=== PATIENT | male | born 1980 | race Caucasian/White ===

== ENCOUNTER 2017-04-30 19:49 | Emergency (ER) | payer OTHER ==
[2017-04-30] MEDS ORDERED: BENADRYL 50 MG/ML IM ONE (20:09)
--- NOTE | 2017-04-30 20:09 | ERPHSYRPT ---
- History of Present Illness Time Seen by Provider: 04/30/17 20:05 Source: patient Exam Limitations: no limitations Patient Subjective Stated Complaint: Rash since yesterday, worsening today. Slow onset. Unknown new exposures. Has had this happen x 1 in the past with similar presentation. 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 Triage Nursing Assessment: Pt alert, oriented, answers all questions appropriately. Skin p/w/d, resps non-labored. Lung sounds CTA bilat. Red raised welts noted to pts neck, torso, arms, legs. No drainge from sites noted. SPO2 96% room air. Physician History: rash , urticaric over body , previous occurrence last year requiring steroid tx not short of breath , swallowing OK , no meds , no known exposures; no known chronic Dx Timing/Duration: today Quality: itchy Severity: moderate Location: generalized Possible Causes: no cause identified Modifying Factors: Improves With: prednisone Associated Symptoms: hives, rash Allergies/Adverse Reactions: Sulfa (Sulfonamide Antibiotics) Allergy (Verified 04/30/17 20:07) Immunizations Up to Date: Yes - Review of Systems Constitutional: No Fever, No Chills Eyes: No Symptoms Ears, Nose, & Throat: No Symptoms Respiratory: No Cough, No Dyspnea Cardiac: No Chest Pain, No Edema, No Syncope Abdominal/Gastrointestinal: No Abdominal Pain, No Nausea, No Vomiting, No Diarrhea Genitourinary Symptoms: No Dysuria Musculoskeletal: No Back Pain, No Neck Pain Skin: Rash Neurological: No Dizziness, No Focal Weakness, No Sensory Changes Psychological: No Symptoms Endocrine: No Symptoms All Other Systems: Reviewed and Negative - Past Medical History Pertinent Past Medical History: Yes Other Medical History: prior similar event - Past Surgical History Past Surgical History: No - Social History Smoking Status: Never smoker Exposure to second hand smoke: No Patient Lives Alone: No - Nursing Vital Signs Nursing Vital Signs: Initial Vital Signs Temperature 98.3 F 04/30/17 19:53 Pulse Rate 104 H 04/30/17 19:53 Respiratory Rate 16 04/30/17 19:53 Blood Pressure 144/76 04/30/17 19:53 O2 Sat by Pulse Oximetry 96 04/30/17 19:53 Pain Scale Pain Intensity 0 - Physical Exam General Appearance: no apparent distress, alert Eye Exam: PERRL/EOMI, eyes nml inspection Ears, Nose, Throat Exam: normal ENT inspection, pharynx normal, moist mucous membranes, No pharyngeal erythema Neck Exam: normal inspection, non-tender, supple, full range of motion Respiratory Exam: normal breath sounds, lungs clear, airway intact, No respiratory distress, No crackles/rales, No rhonchi, No wheezing, No stridor Cardiovascular Exam: regular rate/rhythm, normal heart sounds Gastrointestinal/Abdomen Exam: soft, mass, No tenderness Back Exam: normal inspection, normal range of motion, No CVA tenderness, No vertebral tenderness Extremity Exam: normal inspection, normal range of motion Neurologic Exam: alert, oriented x 3, cooperative, normal mood/affect, sensation nml, No motor deficits Skin Exam: normal color, warm, dry, rash SpO2 Interpretation: normal SpO2: 96 Oxygen Delivery: Room Air - Course Nursing assessment & vital signs reviewed: Yes Ordered Tests: Active Orders 24 hr Category Date Time Status Pulse Oximetry (ED) STAT Care 04/30/17 20:09 Active Medication Summary Discontinued Medications Generic Name Dose Route Start Last Admin Trade Name Michelle PRN Reason Stop Dose Admin Dexamethasone Sodium Phosphate 8 mg 04/30/17 20:11 04/30/17 20:50 Decadron 4 Mg Inj IM 04/30/17 20:12 8 mg STAT ONE Administration Dexamethasone Sodium Phosphate Confirm 04/30/17 20:14 Decadron 4 Mg Inj Administered 04/30/17 20:15 Dose 8 mg .ROUTE .STK-MED ONE Diphenhydramine HCl 50 mg 04/30/17 20:09 04/30/17 20:51 Benadryl 50 Mg/Ml IM 04/30/17 20:10 50 mg STAT ONE Administration Ranitidine HCl 150 mg 04/30/17 20:11 04/30/17 20:51 Zantac 150 Mg/10 Ml Syrup PO 04/30/17 20:12 150 mg STAT ONE Administration - Progress Progress: improved, re-examined Progress Note: 04/30/17 21:17 hives resolving with tx , pt feels better and wishes DC to f/u PCP Counseled pt/family regarding: diagnosis, need for follow-up - Departure Time of Disposition: 21:18 Departure Disposition: Home Clinical Impression: Urticaria Condition: Good Critical Care Time: No Referrals: DOCTOR,NO FAMILY [Primary Care Provider] - Instructions: Reduce Environmental Allergens, Hives Additional Instructions: followup with your dr for referral to wood cabinet finisher and further workup to exclude other potential causes; and to recheck your blood pressure; return meantime if symptoms return or do not resolve especially if short of breath or any trouble swallowing; take over the counter zantac and benadryl for the next few days to help itching ; no driving after taking benadryl Prescriptions: Methylprednisolone Packet [Medrol Dosepack] 4 mg PO UD #30 packet
[2017-04-30] MEDS ORDERED: zanTAC 150 MG/10 ML SYRUP PO ONE (20:11)
[2017-04-30] MEDS ORDERED: Decadron 4 MG INJ IM ONE (20:11)
[2017-04-30] MEDS ORDERED: Decadron 4 MG INJ ONE (20:14)
[2017-04-30 21:25] VITALS: BP 133/69; PULSE 92; O2SAT 97
== END 2017-04-30 21:25 | disposition home or self-care (01) ==
LOC: ED 19:49
DX: L50.9 Urticaria, unspecified (principal)
CPT/HCPCS: 96372; 99284; J1100; J1200; A9270-GY